=== PATIENT | male | born 2000 | race African-American/Black ===

== ENCOUNTER → 2021-10-20 | Outpatient (CLI) | payer BC ==
--- NOTE | 2021-10-20 16:13 | KCIC ---
AP and lateral views of the calcaneus. 10/20/2021 INDICATION: Heel pain. COMPARISON STUDY: None. FINDINGS: No fracture or dislocation is identified. Articular surfaces are uninterrupted and smooth. No radiographic soft tissue abnormalities are identified. No lytic or blastic changes are seen. IMPRESSION: No radiographic evidence of osseous abnormality Electronically signed by: Lucas Keys MD (10/20/2021 4:10 PM) [id number]
== END ==
LOC: KCIC 15:03
PROVIDERS: ATTEND Nurse Practitioner Family
DX: M79.672 Pain in left foot (principal)
CPT/HCPCS: 73650